=== PATIENT | male | born 1965 | race Caucasian/White ===

== ENCOUNTER 2021-12-28 06:20 | Day surgery (SDC) | payer OTHER ==
[~2021-12-28] VITALS: Ht 167.6 cm; Wt 72.7 kg
[2021-12-28] MEDS ORDERED: LIDOCAINE 2% 30 ML JELLY TP ONE (06:21)
[2021-12-28] MEDS ORDERED: LIDOCAINE 4% 50 ML SOLUTION TP ONE (06:21)
[2021-12-28] MEDS ORDERED: BENZOCAINE 20% 50 MCG/SPRAY 57 GM TP ONE (06:21)
[2021-12-28] MEDS ORDERED: SODIUM CHLORIDE 0.9% 1,000 ML IV ONE (06:30)
[2021-12-28] MEDS ORDERED: SODIUM CHLORIDE 0.9% 1,000 ML ONE (06:35)
[2021-12-28 07:02] LABS: COVID AG,FIA SOURCE NASAL SWAB
[2021-12-28] MEDS ORDERED: AMLO-258 PO (07:37)
[2021-12-28] MEDS ORDERED: FentaNYL CITRATE PF 100 MCG/2 ML VIAL ONE (07:52)
[2021-12-28] MEDS ORDERED: MIDAZOLAM HCL 5 MG/ML VIAL ONE (07:53)
[2021-12-28] MEDS ORDERED: MethylPREDNISolone SOD SUCC 125 MG/2 ML VIAL IVP ONE (09:00)
[2021-12-28] MEDS ORDERED: MethylPREDNISolone SOD SUCC 125 MG/2 ML VIAL ONE (09:47)
[2021-12-28] MEDS ORDERED: OXYGEN THERAPY IH SCH (20:00)
== END 2021-12-28 12:40 | disposition home or self-care (01) ==
LOC: SURGERY 06:20
PROVIDERS: ATTEND Internal Medicine Critical Care Medicine
DX: J38.4 Edema of larynx (principal); B37.0 Candidal stomatitis; I10 Essential (primary) hypertension; J43.9 Emphysema, unspecified; J98.8 Other specified respiratory disorders; J98.09 Other diseases of bronchus, not elsewhere classified; Z79.899 Other long term (current) drug therapy; Z98.890 Other specified postprocedural states; F17.210 Nicotine dependence, cigarettes, uncomplicated; Z88.8 Allergy status to other drugs, medicaments and biological substances; Z72.89 Other problems related to lifestyle; Z87.442 Personal history of urinary calculi
CPT/HCPCS: 31623; 31624; 71045; 87015; 87070; 87101; 87206; 87220; 87426; 88112; 88184; 88185; 88305; 88312; C9803; J2250; J2930; J3010; J7030; Z7610